=== PATIENT | male | born 1960 | race Caucasian/White ===

== ENCOUNTER 2016-11-18 05:15 | Emergency (ER) | payer BC ==
[2016-11-18] MEDS ORDERED: HYDROmorphone 1 MG/ML 1 ML SYRINGE IVP STA (05:23)
[2016-11-18] MEDS ORDERED: ONDANSETRON 4 MG/2 ML VIAL IVP STA (05:23)
[2016-11-18] MEDS ORDERED: SODIUM CHLORIDE 0.9% 1,000 ML IV STA (05:23)
[2016-11-18] MEDS ORDERED: KETOROLAC 30 MG/ML 1 ML VIAL IVP STA (05:23)
[2016-11-18 05:50] LABS: Basophils # (A) 0.1 k/uL (0-0.2); Basophils % (A) 1 %; CH 30.8; CHCM 34.3; Eosinophils # (A) 0.2 k/uL (0-0.7); Eosinophils % (A) 2 %; HCT 45.8 % (39.0-53.0); HDW 2.53; HGB 15.3 gm/dL (13.0-17.5); Luc # (Auto) 0.15; Luc % (Auto) 2; Lymphocytes # (A) 2.5 k/uL (1.0-4.8); Lymphocytes % (A) 25 %; MCH 30.2 pg (25.0-35.0); MCHC 33.5 g/dL (31.0-37.0); MCV 90.3 fL (80.0-100.0); Mean Platelet Volume 8.1; Monocytes # (A) 0.4 k/uL (0-1.0); Monocytes % (A) 4 %; Neutrophils # (A) 6.7 k/uL (1.3-7.7); Neutrophils % (A) 67 %; RBC 5.08 m/uL (4.30-5.90); RDW 12.2 % (11.5-15.5); WBC (Perox) 9.63
--- NOTE | 2016-11-18 05:50 | ED ---
Abdominal Pain HPI - General Chief Complaint: Abdominal Pain Stated Complaint: Abdominal Pain Time Seen by Provider: 11/18/16 05:23 Source: patient Mode of arrival: wheelchair Limitations: no limitations - History of Present Illness MD Complaint: abdominal pain Onset/Timin -: hour(s) Location: [facility] Radiation: none Migration to: no migration Severity: severe Quality: sharp Consistency: constant Improves With: nothing Worsens With: nothing Associated Symptoms: nausea, vomiting - Related Data Previous Rx's Medication Instructions Recorded Hydrocodone/Acetaminophen [[place] 1 each PO Q6HR PRN #20 tab 11/18/16 5-325] Ondansetron Odt [Zofran ODT] 4 mg PO Q8HR PRN #10 tab 11/18/16 Tamsulosin [Flomax] 0.4 mg PO DAILY #14 cap 11/18/16 Allergies Allergy/AdvReac Type Severity Reaction Status Date / Time No Known Allergies Allergy Verified 11/18/16 05:20 Review of Systems ROS Statement: Those systems with pertinent positive or pertinent negative responses have been documented in the HPI. ROS Other: All systems not noted in ROS Statement are negative. Constitutional: Denies: fever, chills Respiratory: Denies: cough, dyspnea Cardiovascular: Denies: chest pain, palpitations, edema, syncope Gastrointestinal: Reports: as per HPI, abdominal pain, nausea, vomiting. Denies : diarrhea, hematemesis, melena, hematochezia Genitourinary: Denies: dysuria, frequency, hematuria, testicular pain, testicular mass Musculoskeletal: Denies: back pain Skin: Denies: rash Neurological: Denies: headache, weakness, numbness Past Medical History Past Medical History: No Reported History History of Any Multi-Drug Resistant Organisms: None Reported Past Surgical History: No Surgical Hx Reported Past Psychological History: No Psychological Hx Reported Smoking Status: Never smoker Past Alcohol Use History: None Reported Past Drug Use History: None Reported General Exam Limitations: no limitations General appearance: alert, in distress Head exam: Present: atraumatic, normocephalic Eye exam: Present: normal appearance. Absent: scleral icterus, conjunctival injection ENT exam: Present: normal oropharynx Respiratory exam: Present: normal lung sounds bilaterally. Absent: respiratory distress, wheezes, rales, rhonchi, stridor Cardiovascular Exam: Present: regular rate, normal rhythm, normal heart sounds. Absent: systolic murmur, diastolic murmur, rubs, gallop GI/Abdominal exam: Present: soft, rigid, normal bowel sounds. Absent: distended , tenderness, guarding, rebound, mass, pulsatile mass, hernia Extremities exam: Present: normal inspection, normal capillary refill. Absent: pedal edema, calf tenderness Back exam: Present: normal inspection. Absent: CVA tenderness (R), CVA tenderness (L) Neurological exam: Present: alert Skin exam: Present: warm, dry, intact, normal color. Absent: rash, cyanosis, diaphoretic, erythema, petechiae, pallor, mottled Course Vital Signs 11/18/16 05:17 Pulse Rate 63 Respiratory 20 Rate Blood Pressure 181/99 O2 Sat by Pulse 99 Oximetry Medical Decision Making - Lab Data Result diagrams: 11/18/16 05:30 Lab Results 11/18/16 Range/Units 05:30 WBC 10.0 (3.8-10.6) k/uL RBC 5.08 (4.30-5.90) m/uL Hgb 15.3 (13.0-17.5) gm/dL Hct 45.8 (39.0-53.0) % MCV 90.3 (80.0-100.0) fL MCH 30.2 (25.0-35.0) pg MCHC 33.5 (31.0-37.0) g/dL RDW 12.2 (11.5-15.5) % Plt Count 305 (150-450) k/uL Neutrophils % 67 % Lymphocytes % 25 % Monocytes % 4 % Eosinophils % 2 % Basophils % 1 % Neutrophils # 6.7 (1.3-7.7) k/uL Lymphocytes # 2.5 (1.0-4.8) k/uL Monocytes # 0.4 (0-1.0) k/uL Eosinophils # 0.2 (0-0.7) k/uL Basophils # 0.1 (0-0.2) k/uL Disposition Clinical Impression: Calculus of kidney Disposition: HOME SELF-CARE Condition: Good Instructions: Kidney Stones (ED) Prescriptions: Hydrocodone/Acetaminophen [[facility] [place] 5-325] 1 each PO Q6HR PRN #20 tab PRN Reason: Pain Ondansetron Odt [Zofran ODT] 4 mg PO Q8HR PRN #10 tab PRN Reason: Nausea Tamsulosin [Flomax] 0.4 mg PO DAILY #14 cap Referrals: None,Stated [Primary Care Provider] - 1-2 days Duarte Kowalski MD [STAFF PHYSICIAN] - 1-2 days
[2016-11-18] MEDS ORDERED: TAMSULOSIN 0.4 MG CAP.ER.24H PO STA ×2 (05:59→06:01)
[2016-11-18 06:02] LABS: Calcium 9.5 mg/dL (8.4-10.2); Potassium 4.2 mmol/L (3.5-5.1); Total Bilirubin 1.1 mg/dL (0.2-1.3); Total Protein 7.3 g/dL (6.3-8.2)
--- NOTE | 2016-11-18 06:10 | CT ---
EXAM: CT Abdomen and Pelvis Without Intravenous Contrast CLINICAL HISTORY: Reason: abdominal pain TECHNIQUE: Axial computed tomography images of the abdomen and pelvis without intravenous contrast. Coronal and sagittal reformats were obtained. CTDI is 7.70 MGy and DLP is 375.70 MGy-cm This CT exam was performed using one or more of the following dose reduction techniques: automated exposure control, adjustment of the mA and/or kV according to patient size, and/or use of iterative reconstruction technique. COMPARISON: No relevant prior studies available. FINDINGS: Lower thorax: No acute findings. ABDOMEN: Liver: Two small hypodensities in the right hepatic lobe, likely cysts. Gallbladder and bile ducts: Unremarkable. No calcified stones. No ductal dilation. Pancreas: Unremarkable. No ductal dilation. Spleen: Unremarkable. No splenomegaly. Adrenals: Unremarkable. No mass. Kidneys and ureters: 4 mm obstructing calculus in the proximal left ureter causing mild left hydronephrosis and left perinephric and periureteral edema. Nonobstructing bilateral renal calculi with the largest measuring 3 mm on the right and 2 mm on the left. Stomach and bowel: Unremarkable. No obstruction. No mucosal thickening. Appendix: No findings to suggest acute appendicitis. PELVIS: Bladder: Unremarkable. No stones. Reproductive: Unremarkable as visualized. ABDOMEN and PELVIS: Intraperitoneal space: Unremarkable. No free air. No significant fluid collection. Bones/joints: No acute fracture. Vasculature: Unremarkable. No abdominal aortic aneurysm. Lymph nodes: Unremarkable. No enlarged lymph nodes. IMPRESSION: 1. 4 mm obstructing calculus in the proximal left ureter causing mild left hydronephrosis. 2. Nonobstructing bilateral renal calculi.
[2016-11-18] MEDS ORDERED: ONDANSETRON ODT 4 MG TAB PO STA (07:17)
[2016-11-18 07:26] VITALS: BP 164/80; PULSE 65; RESP 18; TEMP 97.3
== END 2016-11-18 07:26 | disposition home or self-care (01) ==
LOC: EC 05:15
DX: N20.0 Calculus of kidney (principal)
CPT/HCPCS: 99284; 96374; 96375 ×2; 96361 ×2; 36415; 80053; 82150; 83690; 85025; 74176; J2405; J1885; J1170